=== PATIENT | female | born 1950 | race Caucasian/White ===

== ENCOUNTER 2017-09-16 12:03 | Emergency (ER) | payer MEDICAID, MEDICARE, OTHER ==
[~2017-09-16] VITALS: Ht 165.1 cm; Wt 99.8 kg
[~2017-09-16 12:03] MED LIST: LISI1TAB13 PO
[2017-09-16] MEDS ORDERED: AMLO10TA2 PO (12:18)
[2017-09-16] MEDS ORDERED: LOSA100T15 PO (12:18)
--- NOTE | 2017-09-16 12:58 | NUR ---
Dr wolfe at the bedside for eval and exam.
[2017-09-16 13:07] VITALS: BP 122/70
--- NOTE | 2017-09-16 13:08 | NUR ---
Patient discharged to home in stable conditon. Written and verbal after care instructions given. Patient verbalizes understanding of instructions.
== END 2017-09-16 13:08 | disposition home or self-care (01) ==
LOC: ER 12:04
DX: J20.9 Acute bronchitis, unspecified (principal); I10 Essential (primary) hypertension; Z87.891 Personal history of nicotine dependence; Z90.49 Acquired absence of other specified parts of digestive tract
CPT/HCPCS: A4663

== ENCOUNTER 2019-11-24 10:59 | Emergency (ER) | payer OTHER ==
[~2019-11-24] VITALS: Ht 165.1 cm; Wt 96.6 kg
--- NOTE | 2019-11-24 12:27 | NUR ---
Patient discharged to home in stable conditon. Written and verbal after care instructions given. Patient verbalizes understanding of instructions.PT WALKS IN STEADY GAIT. PT HAS APPT WITH OWN PMD AT 1500.
[2019-11-24 12:28] VITALS: BP 111/71
== END 2019-11-24 12:29 | disposition home or self-care (01) ==
LOC: ER 10:59
DX: M79.661 Pain in right lower leg (principal); I10 Essential (primary) hypertension; F17.200 Nicotine dependence, unspecified, uncomplicated; Z90.49 Acquired absence of other specified parts of digestive tract
CPT/HCPCS: A4663